=== PATIENT | female | born 1930 | race Caucasian/White ===

== ENCOUNTER 2020-12-05 07:04 | Inpatient (IN) | payer MEDICARE ==
[~2020-12-05] VITALS: Ht 160 cm; Wt 45.4 kg
[2020-12-05 06:59] VITALS: BP 115/42
--- NOTE | 2020-12-05 07:04 | NUR ---
ARRIVAL 'PT ARRIVED TO ED WITH C/O DIFFICULTY BREATHING. PT REPORTS THAT SHE HAS BEEN HAVING INCREASED SOB SINCE COMING HERE FROM [place] 2 WEEKS AGO. BEDSIDE MONITORS APPLIED. VITAL SIGNS STABLE. RT CALLED FOR EKG AND ABG. LUNGS DEMINISHED AND WHEEZING. BED IN LOW LOCKED POSITION. PT HAS 20G IV PLACED TO LEFT FOREARM AND HAS RECEIVED ALBUTEROL AND ATROVENT NEBULIZED TREATMENT, SOLUMEDROL 125MG AND MAGNESIUM 2 GRAMS EN ROUTE TO [facility] VIA EMS. PT DENIES ANY FURTHER SYTMPOMS OR NEEDS AT THIS TIME. CALL LIGHT WITHIN REACH.
[2020-12-05 07:16] LABS: BASOPHIL % 0.7 % (0.0-0.2); EOSINOPHIL # 0.3 10^3/uL (0.0-0.2); EOSINOPHIL % 6.1 % (0.0-5.0); LYMPHOCYTES # 2.43 10^3/uL1 (1.0-4.8); LYMPHOCYTES % 44.7 % (24.0-44.0); MEAN CORP HGB 29.1 pg (26-34); MONOCYTES # 0.4 10^3/uL (0.3-0.8); MONOCYTES % 6.6 % (5.0-12.0); NEUTROPHIL # 2.3 10^3/uL (1.8-7.7); NEUTROPHILS % 41.3 % (41.0-85.0); PLATELET COUNT 275 10^3/uL (150-400); RED CELL DISTRIBUTION WIDTH 17.3 % (11.5-14.5)
[2020-12-05] MEDS ORDERED: FAMO20TA5 PO (07:16)
[2020-12-05] MEDS ORDERED: UMEC1DIS IH (07:16)
[2020-12-05] MEDS ORDERED: ALBU90AE IH (07:16)
[2020-12-05] MEDS ORDERED: SOTA80TA PO ×2 (07:16→11:21)
[2020-12-05] MEDS ORDERED: ASPI-929 PO (07:16)
[2020-12-05] MEDS ORDERED: CHOL20008 PO (07:16)
--- NOTE | 2020-12-05 07:17 | NUR ---
ANDRES MELARA CALLED OUT FOR XRAY.
--- NOTE | 2020-12-05 07:30 | NUR ---
BIPAP PT PLACED ON BIPAP BY RT.
--- NOTE | 2020-12-05 07:36 | ER.PDOC ---
General Chief Complaint: Dyspnea/Respdistress Stated Complaint: DYSPNEA Time seen by MD: 07:33 Source: patient Exam Limitations: no limitations History of Present Illness Initial Comments Patient with COPD brought in by EMS because of difficulty breathing for several weeks and months worse this morning. No fever or chills. She has a cough. No chest pain. Severity: moderate Prior Episodes/Possible Cause: occasional episodes, chronic episodes Modifying Factors: improves with albuterol nebulizer Associated Symptoms: cough, wheezing Allergies: Coded Allergies: Penicillins (Verified Allergy, Unknown, UNKNOWN, 12/05/20) Sulfa (Sulfonamide Antibiotics) (Verified Allergy, Unknown, 12/05/20) codeine (Verified Allergy, Unknown, 12/05/20) Home Meds Reported Medications Albuterol Sulfate (Proair Respiclick) 90 Mcg Aer.pow.ba, 90 MCG IH Q4HR PRN for SHORTNESS OF BREATH, PKG 12/05/20 Aspirin (ASPIRIN EC) 81 Mg Tablet.dr, 81 MG PO DAILY24 12/05/20 Famotidine (FAMOTIDINE) 20 Mg Tablet, 20 MG PO BID, TAB 12/05/20 Cholecalciferol (Vitamin D3) (Vitamin D3) 50 Mcg (2000 Unit) Capsule, 1 CAP PO DAILY24 12/05/20 Sotalol Hcl (SOTALOL) 80 Mg Tablet, 40 MG PO BID, TAB 12/05/20 Umeclidinium Brm/Vilanterol Tr (Anoro Ellipta 62.5-25 Mcg INH) 1 Each Disk.w.dev, 1 EACH IH DAILY24, DISK 12/05/20 Past Medical History Medical History: COPD Surgical History: pacemaker/ICD Family History Significant Family History: no pertinent family hx Social History Smoking: greater than 1 pack/day Alcohol Use: occassionally Drug Use: none Review of Systems Constitutional: no symptoms reported EENTM: no symptoms reported Respiratory: see HPI Cardiovascular: no symptoms reported Gastrointestinal: no symptoms reported All Other Systems: Reviewed and Negative Physical Exam General Appearance: Mild Distress Respiratory: chest non-tender, respiratory distress, decreased breath sounds, prolonged expirations, wheezing Cardiovascular: Normal Peripheral Pulses, Regular Rate, Rhythm, No Edema, No Gallop, No JVD, No Murmur Gastrointestinal: Normal Bowel Sounds, No Organomegaly, No Pulsatile Mass, Non Tender, Soft Extremities: Normal Range of Motion, Non-Tender, Normal Inspection, No Pedal Edema, No Calf Tenderness, Normal Capillary Refill 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 (12/05/20 07:13) Procalcitonin (12/05/20 07:13) Lactic Acid(Ml) (12/05/20 07:13) Cta Chest (12/05/20 08:08) Levofloxacin 500mg/D5w 100ml (Levaquin) (12/05/20 08:16) Levofloxacin 500mg/D5w 100ml (Levaquin) (12/05/20 08:19) 0.9 % Sodium Chloride (Ns 1000ml) (12/05/20 08:21) 0.9 % Sodium Chloride (Ns 1000ml) (12/05/20 08:21) Vital Signs Date Time Temp Pulse Resp B/P (MAP) Pulse Ox O2 Delivery O2 Flow Rate FiO2 12/05/20 06:59 97.6 93 26 115/42 (66) 88 Room Air 12/05/20 06:59 97.6 93 26 88 12/05/20 06:59 97.6 93 26 Administered Medications Medications (Trade) Dose Ordered Sig/Bianca Route PRN Reason Start Time Stop Time Status Last Admin Dose Admin Levofloxacin/ Dextrose 100 ml @ 100 mls/hr STAT STAT IV 12/05/20 08:16 12/05/20 09:15 12/05/20 08:26 100 MLS/HR Sodium Chloride 1,000 ml @ 1,200 mls/hr Q50M STAT IV 12/05/20 08:21 12/05/20 09:10 12/05/20 08:26 1,200 MLS/HR Laboratory Tests Test 12/05/20 07:08 12/05/20 07:10 Blood Gas Sample Site LEFT RADIAL ARTERY Blood pH 7.218 (7.350-7.450) Blood Gas PCO2 48.4 mmHg (35.0-45.0) H Blood Gas PO2 56.0 mmHg (80.0-100.0) L Blood Gas HCO3 19.3 mmol/L (22.0-26.0) L Blood Gas Base Excess -8.4 mmol/L (-2.0-2.0) L Dalton Test POSITIVE Arterial Blood Oxygen Saturation 82.2 % (94.0-97.00) L Deoxyhemoglobin 17.4 % (0.0-5.0) H Carboxyhemoglobin 1.9 % (0.0-3.9) Methemoglobin 0.2 % (0.00-5.0) Total Hemoglobin 12.9 % (12.0-17.8) Total Oxygen Concentration 14.6 % (13.5-17.5) Blood Gas Temperature 37.0 Oxygen Delivery Method ROOM AIR FiO2 21 % (20-101) Total Carbon Dioxide 20.8 mmol/L (23-27) L White Blood Count 5.4 10^3/uL (4.5-11.0) Red Blood Count 4.12 10^6/uL (4.00-5.20) Hemoglobin 12.0 g/dL (12.0-15.0) Hematocrit 40.7 % (36.0-46.0) Mean Corpuscular Volume 98.8 fL (78-100) Mean Corpuscular Hemoglobin 29.1 pg (26-34) Mean Corpuscular Hemoglobin Concent 29.5 g/dL (33-36.5) L Red Cell Distribution Width 17.3 % (11.5-14.5) H Platelet Count 275 10^3/uL (150-400) Mean Platelet Volume 9.8 fL (7.8-11.0) Neutrophils (%) (Auto) 41.3 % (41.0-85.0) Lymphocytes (%) (Auto) 44.7 % (24.0-44.0) H Monocytes (%) (Auto) 6.6 % (5.0-12.0) Neutrophils # (Auto) 2.3 10^3/uL (1.8-7.7) Lymphocytes # (Auto) 2.43 10^3/uL1 (1.0-4.8) Monocytes # (Auto) 0.4 10^3/uL (0.3-0.8) Absolute Immature Granulocyte (auto 0.03 10^3 u/L (0-2) Absolute Eosinophils (auto) 0.3 10^3/uL (0.0-0.2) H Immature Granulocytes % 0.60 % (0.00-0.50) H Eosinophils % 6.1 % (0.0-5.0) H Basophils % 0.7 % (0.0-0.2) H Basophils # 0.0 10^3/uL (0.0-0.1) Prothrombin Time 10.4 SEC (9.6-12.0) Prothrombin Time INR (Non-Therap) 1.0 Activated Partial Thromboplast Time 20.6 SEC (24.67-30.72) D-Dimer 5.07 mg/L (0.19-0.49) *H Sodium Level 144 mmol/L (132-145) Potassium Level 3.7 mmol/L (3.6-5.2) Chloride Level 109.0 mmol/L (96-109) Carbon Dioxide Level 23.2 mmol/L (20.0-32) Anion Gap 15.5 Blood Urea Nitrogen 13 mg/dL (7-18) Creatinine 1.10 mg/dL (0.59-1.40) Estimated GFR () 56.6 (>/=60) Est GFR (CKD-EPI)(Non-Afr South African) 46.8 (>/=60) BUN/Creatinine Ratio 11.0 Glucose Level 233 mg/dL (70-110) H Lactic Acid Level 3.8 mmol/L (0.5-1.9) *H Calcium Level 8.5 mg/dL (8.4-10.5) Total Bilirubin 0.7 mg/dL (0.2-1.0) Aspartate Amino Transferase (AST) 105 U/L (0-35) H Alanine Aminotransferase (ALT) 55 U/L (12-78) Alkaline Phosphatase 94 U/L (50-136) Total Creatine Kinase 35 U/L (26-192) Creatine Kinase MB 1.0 ng/mL (0.5-3.6) Troponin I 0.04 ng/mL (0.00-0.05) Pro-B-Type Natriuretic Peptide 627 pg/mL (0-450) H Total Protein 6.7 g/dL (6.4-8.2) Albumin 3.1 g/dL (3.4-5.0) L Globulin 3.6 Albumin/Globulin Ratio 0.861 Procalcitonin 0.12 ng/mL (0.05-0.5) EKG/XRAY/CT/US EKG: NSR, no ST T wave changes EKG Comments: HR 90, normal P axis XRAY: chest (COPD) ER DEPART Departure Time of Disposition: 08:31 Disposition: 01 HOME / SELF CARE / HOMELESS Impression: Primary Impression: Acute respiratory failure Additional Impression: COPD exacerbation Condition: Stable Referrals: PCP,UNKNOWN (PCP) PRIMARY CARE PROVIDER Comments Admitted to Dr. Alaniz Duration or Time Spent with Pa: 60 min Critical Care Note Total Time (mins): 60 Problem Qualifiers Primary Impression: Acute respiratory failure Respiratory failure complication: hypoxia and hypercapnia Qualified Codes: J96.01 - Acute respiratory failure with hypoxia; J96.02 - Acute respiratory failure with hypercapnia ALEXANDER RUBIO MD Dec 05, 2020 07:36
[2020-12-05 07:41] LABS: CALCIUM 8.5 mg/dL (8.4-10.5); CARBON DIOXIDE 23.2 mmol/L (20.0-32)
--- NOTE | 2020-12-05 07:45 | NUR ---
XRAY SARITHA HERE FOR XRAY
--- NOTE | 2020-12-05 08:07 | NUR ---
CRITICAL LAB D-DIMER 5.07, DOCTOR JOANNE NOTIFIED.
--- NOTE | 2020-12-05 08:11 | PCM.EKG ---
[facility] Test Date: 2020-12-05 Test Time: 06:59:07 Pat Name: MAGDALENO NEAL Department: Room: Gender: F [employer] Vehicle Operator: NURA : 1930 Requested By: VINOD SANTAMARIA Order Number: [id number] Reading MD: Measurements Intervals [facility] Rate: 90 P: 91 MD: 206 QRS: -51 QRSD: 138 T: 109 QT: 414 QTc: 507 Interpretive Statements Sinus rhythm Probable left atrial enlargement RBBB and LAFB Nonspecific T abnormalities, lateral leads No previous ECG available for comparison Please click the below link to view image of tracing.
[2020-12-05] MEDS ORDERED: LEVAQUIN 100 ML IV STA (08:16)
[2020-12-05 08:17] LABS: ABG PCO2 48.4 mmHg (35.0-45.0); ABG PH 7.218 (7.350-7.450); BE(B) -8.4 mmol/L (-2.0-2.0); HCO3act 19.3 mmol/L (22.0-26.0)
[2020-12-05] MEDS ORDERED: LEVAQUIN 100 ML IV ONE (08:19)
[2020-12-05] MEDS ORDERED: NS 1000ML 1,000 ML ONE (08:21)
[2020-12-05] MEDS ORDERED: NS 1000ML 1,000 ML IV STA (08:21)
--- NOTE | 2020-12-05 08:26 | NUR ---
DR STEVENSON FIERRO MBA ON THE PHONE WITH DR DASILVA WHO ACCEPTED PT TO [facility].
--- NOTE | 2020-12-05 08:27 | DIREP ---
PROCEDURE:CHEST 1 VIEW COMPARISON:None. INDICATIONS:SOB FINDINGS: LUNGS/PLEURA:There is pulmonary hyperinflation consistent with underlying COPD. No focal consolidation. No effusions. Calcified granuloma right lung base. VASCULATURE:Normal. Unremarkable pulmonary vasculature. CARDIAC:Normal. No cardiac silhouette abnormality or cardiomegaly. MEDIASTINUM:Calcifications consistent with old granulomatous disease. Dual lead left chest pacemaker. BONES:Normal. No fracture or visible bony lesion. OTHER:Negative. CONCLUSION:Findings suggest COPD. Dictated by: Veto Thomas M.D. on 12/05/2020 at 08:22 AM
--- NOTE | 2020-12-05 09:24 | DIREP ---
PROCEDURE:CT PULMONARY ANGIOGRAM TECHNIQUE:Following the intravenous administration of contrast material, axial cuts were obtained through the chest. Sagittal and coronal MIP post-processing reconstructions are provided. Satisfactory pulmonary arterial contrast opacification was achieved. The images were viewed at lung and soft tissue settings. COMPARISON:None. INDICATIONS:Shortness of breath FINDINGS: PULMONARY ARTERIES:Patent. Mildly prominent central pulmonary arteries raises the concern of pulmonary arterial hypertension in the appropriate clinical setting. There is more contrast in the aorta and pulmonary arteries but no visible pulmonary embolism. LUNGS:Scattered bilateral subpleural scarring. Benign calcified granuloma right middle lobe. PLEURA:Trace posterior right pleural effusion. CARDIAC:Overall heart size within normal limits. Pacemaker leads in the right heart. THORACIC AORTA:Torturous thoracic aorta. Calcified plaque. No visible dissection. No aneurysm. MEDIASTINUM:Normal. BONES:Right-sided curvature of the thoracic/lumbar spine junction. THYROID:Normal. OTHER:No additional findings. CONCLUSION: 1. Negative for pulmonary embolism. No visible air dissection or aneurysm. 2. Mild subpleural scarring in both lungs. 3. Mildly enlarged central pulmonary arteries raise the concern of pulmonary arterial hypertension. Dictated by: Veto Thomas M.D. on 12/05/2020 at 09:14 AM
[2020-12-05 10:57] VITALS: BP 113/60
[2020-12-05] MEDS ORDERED: BETAPACE ONE (11:24)
--- NOTE | 2020-12-05 13:45 | PCM.HP ---
HISTORY & PHYSICAL HISTORY & PHYSICAL DATE OF ADMISSION: December 05, 2020 CHIEF COMPLAINT: Unable to breathe HISTORY OF PRESENT ILLNESS: 89-year-old female with previous history of atrial fibrillation with possible sick sinus syndrome status post pacemaker placement and GI bleed s/p discontinuation of Coumadin and COPD was apparently came from a concert was assessed in [place] and for last few days breathing progressively getting worse and this morning she was not able to catch her breath therefore ambulance was called and the patient was brought to the ER in the ER patient was found to have hypoxemic started on BiPAP and was admitted to medical floor for further management patient denies any fever chills rigors no change in sputum production or color no hemoptysis only she was feeling short of breath progressively getting worse denies any chest pain had dizziness lightheadedness no nausea vomiting no diarrhea no abdominal symptoms no urinary symptoms ALLERGIES: Allergic to sulfa medicine CURRENT MEDICATIONS: Albuterol as needed, aspirin 81 mg daily, famotidine 20 mg twice daily vitamin D sotalol 40 mg twice daily and Anoro Ellipta 1 inhalation daily PAST MEDICAL HISTORY: COPD, atrial fibrillation, sick sinus syndrome, SOCIAL HISTORY: Still smoke about 1 pack/day for more than 50 years, no alcohol intake, lives alone FAMILY HISTORY: Sister has COPD and family history of cystic fibrosis trait REVIEW OF SYSTEMS: Breathing has slightly improved after oxygen was started and no chest pain no headache nausea vomiting no abdominal pain no dysuria hematuria and no calf tenderness or cramping But has pain during walking for several years VITAL SIGNS: Vital Signs Date Time Temp Pulse Resp B/P (MAP) Pulse Ox O2 Delivery O2 Flow Rate FiO2 12/05/20 13:27 S/T 12/05/20 11:10 S/T 12/05/20 10:57 97.6 73 22 113/60 (77) Bi Pap 12/05/20 10:41 Bi-pap 12/05/20 10:04 Bi-pap 12/05/20 09:28 20 96 12/05/20 09:26 64 20 96 12/05/20 09:23 63 22 96 S/T 25 12/05/20 08:45 74 22 94 S/T 25 12/05/20 06:59 97.6 93 26 115/42 (66) 88 Room Air 12/05/20 06:59 97.6 93 26 88 12/05/20 06:59 97.6 93 26 PHYSICAL EXAMINATION: General: Patient is awake alert oriented no acute distress with oxygen via nasal cannula, Patient is severely underweight and malnourished look cachectic HEENT anicteric sclera pupil react light mucous membrane is slightly dry neck supple no JVD no carotid bruit noted Lungs air entry diminished bilaterally no wheezes or rales heard but have prolonged expiration Heart distant heart sounds S1-S2 heard no murmur no gallop appreciated Abdomen not distended no guarding no rigidity bowel sounds present no organomegaly or masses felt Extremities no edema no calf tenderness elicited ,Fever pulse noted on the right dorsalis Artery NURSING EDUCATOR: Awake alert oriented cranial nerves grossly intact muscle power 5-/5 in all 4 limbs symmetrical LABORATORY DATA: Laboratory Tests Test 12/05/20 07:08 12/05/20 07:10 12/05/20 08:35 12/05/20 10:00 Blood Gas Sample Site LEFT RADIAL ARTERY Blood Gas pH 7.218 (7.350-7.450) Blood Gas PCO2 48.4 mmHg (35.0-45.0) Blood Gas PO2 56.0 mmHg (80.0-100.0) Blood Gas HCO3 19.3 mmol/L (22.0-26.0) Blood Gas Base Excess -8.4 mmol/L (-2.0-2.0) Dalton Test POSITIVE Arterial Blood Oxygen Saturation 82.2 % (94.0-97.00) Deoxyhemoglobin 17.4 % (0.0-5.0) Carboxyhemoglobin 1.9 % (0.0-3.9) Methemoglobin 0.2 % (0.00-5.0) Total Hemoglobin 12.9 % (12.0-17.8) Total Oxygen Concentration 14.6 % (13.5-17.5) Blood Gas Temperature 37.0 Oxygen Delivery Method (LAB) ROOM AIR FiO2 21 % (20-101) Total Carbon Dioxide 20.8 mmol/L (23-27) White Blood Count 5.4 10^3/uL (4.5-11.0) Red Blood Count 4.12 10^6/uL (4.00-5.20) Hemoglobin 12.0 g/dL (12.0-15.0) Hematocrit 40.7 % (36.0-46.0) Mean Corpuscular Volume 98.8 fL (78-100) Mean Corpuscular Hemoglobin 29.1 pg (26-34) Mean Corpuscular Hemoglobin Concent 29.5 g/dL (33-36.5) Red Cell Distribution Width 17.3 % (11.5-14.5) Platelet Count 275 10^3/uL (150-400) Mean Platelet Volume 9.8 fL (7.8-11.0) Neutrophils (%) (Auto) 41.3 % (41.0-85.0) Lymphocytes (%) (Auto) 44.7 % (24.0-44.0) Monocytes (%) (Auto) 6.6 % (5.0-12.0) Neutrophils # (Auto) 2.3 10^3/uL (1.8-7.7) Lymphocytes # (Auto) 2.43 10^3/uL1 (1.0-4.8) Monocytes # (Auto) 0.4 10^3/uL (0.3-0.8) Absolute Immature Granulocyte (auto 0.03 10^3 u/L (0-2) Absolute Eosinophils (auto) 0.3 10^3/uL (0.0-0.2) Immature Granulocytes % 0.60 % (0.00-0.50) Eosinophils % 6.1 % (0.0-5.0) Basophils % 0.7 % (0.0-0.2) Basophils # 0.0 10^3/uL (0.0-0.1) Prothrombin Time 10.4 SEC (9.6-12.0) Prothrombin Time INR (Non-Therap) 1.0 Activated Partial Thromboplast Time 20.6 SEC (24.67-30.72) D-Dimer 5.07 mg/L (0.19-0.49) Sodium Level 144 mmol/L (132-145) Potassium Level 3.7 mmol/L (3.6-5.2) Chloride Level 109.0 mmol/L (96-109) Carbon Dioxide Level 23.2 mmol/L (20.0-32) Anion Gap 15.5 Blood Urea Nitrogen 13 mg/dL (7-18) Creatinine 1.10 mg/dL (0.59-1.40) Estimated GFR () 56.6 (>/=60) Est GFR (CKD-EPI)(Non-Afr Estonian) 46.8 (>/=60) BUN/Creatinine Ratio 11.0 Glucose Level 233 mg/dL (70-110) Lactic Acid Level 3.8 mmol/L (0.5-1.9) Calcium Level 8.5 mg/dL (8.4-10.5) Total Bilirubin 0.7 mg/dL (0.2-1.0) Aspartate Amino Transf (AST/SGOT) 105 U/L (0-35) Alanine Aminotransferase (ALT/SGPT) 55 U/L (12-78) Alkaline Phosphatase 94 U/L (50-136) Total Creatine Kinase 35 U/L (26-192) Creatine Kinase MB 1.0 ng/mL (0.5-3.6) Troponin I 0.04 ng/mL (0.00-0.05) Pro-B-Type Natriuretic Peptide 627 pg/mL (0-450) Total Protein 6.7 g/dL (6.4-8.2) Albumin 3.1 g/dL (3.4-5.0) Globulin 3.6 Albumin/Globulin Ratio 0.861 Procalcitonin 0.12 ng/mL (0.05-0.5) SARS-CoV-2 Antigen (Rapid) NEGATIVE (NEGATIVE) Lactic Acid Followup at 2 Hours 2.3 mmol/L (0.5-1.9) IMAGING: PROCEDURE:CT PULMONARY ANGIOGRAM TECHNIQUE:Following the intravenous administration of contrast material, axial cuts were obtained through the chest. Sagittal and coronal MIP post-processing reconstructions are provided. Satisfactory pulmonary arterial contrast opacification was achieved. The images were viewed at lung and soft tissue settings. COMPARISON:None. INDICATIONS:Shortness of breath FINDINGS: PULMONARY ARTERIES:Patent. Mildly prominent central pulmonary arteries raises the concern of pulmonary arterial hypertension in the appropriate clinical setting. There is more contrast in the aorta and pulmonary arteries but no visible pulmonary embolism. LUNGS:Scattered bilateral subpleural scarring. Benign calcified granuloma right middle lobe. PLEURA:Trace posterior right pleural effusion. CARDIAC:Overall heart size within normal limits. Pacemaker leads in the right heart. THORACIC AORTA:Torturous thoracic aorta. Calcified plaque. No visible dissection. No aneurysm. MEDIASTINUM:Normal. BONES:Right-sided curvature of the thoracic/lumbar spine junction. THYROID:Normal. OTHER:No additional findings. CONCLUSION: 1. Negative for pulmonary embolism. No visible air dissection or aneurysm. 2. Mild subpleural scarring in both lungs. 3. Mildly enlarged central pulmonary arteries raise the concern of pulmonary arterial hypertension. Dictated by: Veto Thomas M.D. on 12/05/2020 at 09:14 AM SUMMARY: 89-year-old female with previous history of COPD atrial fibrillation sick sinus syndrome came to the ER with shortness of breath found to have hypoxemic started on BiPAP and her symptom improved and will observe overnight and discharge planning in a.m. ASSESSMENT/PLAN: COPD with hypoxemia Atrial fibrillation rate controlled Possible sick sinus syndrome s/p pacemaker placement History of GI bleed Coumadin discontinued MILTON CASTILLO MD Dec 05, 2020 13:44
[2020-12-05] MEDS ORDERED: PULMICORT IH SCH (14:00)
[2020-12-05] MEDS: LOVENOX SQ SCH (14:34)
[2020-12-05] MEDS: SOLU-MEDROL IV SCH ×2 (14:34→22:05)
[2020-12-05] MEDS: DUO 0.5-3(2.5) MG/3 ML IH SCH ×2 (15:41→21:00)
[2020-12-05 16:04] VITALS: BP 104/63
--- NOTE | 2020-12-05 17:15 | NUR ---
DIET PATIENT STATES SHE DOES NOT EAT RED MEAT. PATIENT STATES SHE HAD A MALIGNANT COLONOSCOPY IN THE PAST. PATIENT STATES THE DR THAT PERFORMED THE COLONOSCOPY TOLD HER NOT TO EAT RED MEAT. PATIENT STATES SHE ONLY EATS CHICKEN, FISH, OR TURKEY. PATIENT STATES SHE WOULD LIKE TO BE ON THE LIQUID DIET. DIETARY CALLED TO ACCOMMODATE THESE NEEDS. CHARGE NURSE NOTIFIED. THIS NURSE TO CONTINUE PLAN OF CARE.
[2020-12-05] MEDS: MUCOMYST PO SCH (21:00)
[2020-12-05] MEDS: PULMICORT IH SCH (21:00)
[2020-12-05] MEDS: VIBRAMYCIN 100 MG in NS 100ML 100 ML IV SCH (22:05)
[2020-12-05 23:04] VITALS: BP 103/51
--- NOTE | 2020-12-06 03:00 | NUR ---
@0300, due to pt being noncompliant and refusing to stay on her bipap, RN turned off bipap and put her on 2L of O2 via NC that she had been wearing prior to bipap.Pt stated she would only wear her nasal cannula and repeatedly said she did not want to have her bipap mask on anymore. Addendum: 12/06/20 at 0529 by RICKEY Elkins RT Amended: Links added.
[2020-12-06 03:56] VITALS: BP 101/48
[2020-12-06] MEDS: SOLU-MEDROL IV SCH (05:17)
[2020-12-06] MEDS: PULMICORT IH SCH ×2 (08:25→20:56)
[2020-12-06] MEDS: DUO 0.5-3(2.5) MG/3 ML IH SCH ×3 (08:25→20:56)
[2020-12-06 08:30] VITALS: BP 107/56
[2020-12-06] MEDS ORDERED: NS 100ML 100 ML IV ONE (09:17)
[2020-12-06] MEDS: VIBRAMYCIN 100 MG in NS 100ML 100 ML IV SCH ×2 (09:43→20:30)
[2020-12-06] MEDS: MUCOMYST PO SCH ×2 (10:20→20:28)
--- NOTE | 2020-12-06 10:29 | NUR ---
MUCOMYST WAS NOT AVAILABLE TILL PHARMACY WAS ABLE TO BRING IT UP SO IT WAS GIVEN AT 1020 INSTEAD OF 0900
--- NOTE | 2020-12-06 11:36 | PRM.PN ---
PROGRESS NOTE S/O/A/P DATE: 12/06/20 TIME: 10:45am SUBJECTIVE: Patient seen and examined at bedside. Chart was reviewed. Says she's feeling better today with less SOB, cough, and wheezing. Hoping to be DC'd soon so she can return home to [place] on . OBJECTIVE: PHYSICAL EXAMINATION: VITAL SIGNS: T 98.2, HR 63, RR 16, BP 107/56, O2 sat 93% 2L NC GENERAL: Resting comfortably in NAD. Pt's Brother and Niece are both currently present at bedside. HEENT: NC/AT. PERRLA. EOMI. MMM. Neck is supple. LUNGS: Faint BL expiratory wheezing. No respiratory distress or cyanosis. Coughing loudly. HEART: Normal S1S2. RRR. No murmurs, rubs, gallops, or thrills. Left PPM in place. ABDOMEN: Soft. ND. NTTP. No rebound or guarding. Normal BS throughout. EXTREMITIES: Trace pedal edema. Weak, but moving all 4 extremities equally and completely off the bed. NEUROLOGIC: AAOx3. No motor or sensory deficits noted. Gait was not assessed at this time. LABORATORY DATA: No new labs today. Bld Cx: Neg x1 day IMAGING STUDIES: No new studies today. ASSESSMENT / PLAN: 1) Acute Hypoxemic and Hypercapneic Respiratory Failure: Will continue to wean off O2 as tolerated. Pt may require Home O2 on DC if she remains Hypoxic. Per RT, Pt refused to wear her BIPAP mask last night. Pt has received the COVID vaccine x2, and tested negative for SARS-COV-2. 2) Acute COPD Exacerbation with Active Tobacco Abuse: Pt has been counseled and encouraged to quit smoking. Will continue Br Tx's, O2 PRN, Steroids, and Doxycycline. 3) Elevated D-dimer: CTA chest was negative for PE. 4) Elevated proBNP: Will check an Echocardiogram to further evaluate. 5) Paroxysmal Atrial Fibrillation: Currently rated controlled and in NSR. Will continue home Sotalol and ASA. Pt was taken off Coumadin previously due to a GIB. 6) ? SSS s/p PPM/AICD placement: Monitor for now. 7) Hyperglycemia: Will check a HgbA1c. 8) Generalized Weakness: Will request a PT evaluation in the morning. Pt declines SNF or Rehab on DC. 9) GI and DVT prophylaxis: Will continue Pepcid and Lovenox. 10) CODE STATUS: Discussed with Pt and her Niece at length. Pt wishes to remain a FULL CODE for now. LOS JEFFRESON MD Dec 06, 2020 11:35
[2020-12-06] MEDS ORDERED: DUO 0.5-3(2.5) MG/3 ML IH PRN (12:00)
[2020-12-06 12:07] VITALS: BP 109/57
[2020-12-06] MEDS: VITAMIN D PO SCH (13:31)
[2020-12-06] MEDS: ASPIRIN EC PO SCH (13:31)
[2020-12-06] MEDS: LOVENOX SQ SCH ×2 (13:32→13:46)
--- NOTE | 2020-12-06 13:46 | NUR ---
PATIENT REFUSED LOVENOX INJECTION. WHEN EDUCATED ON THE PURPOSE OF THE MED PATIENT STATED THEY DO NOT TAKE ANY TYPE OF MEDICINE BY THIS NAME OR FOR THIS PURPOSE. PATIENT STATES SHE TAKES VIT D AND ASPIRIN 81 MG, HER WARFARIN WAS DC'D DUE TO LOW PLATELET COUNT.
[2020-12-06 16:50] VITALS: BP 131/62
--- NOTE | 2020-12-06 17:43 | NUR ---
Pt ambulating in hallway accompanied by CHRISTIN Correa for O2 challenge without O2, pt's O2 dropped to 83% RA
[2020-12-06 19:56] VITALS: BP 109/59
[2020-12-06] MEDS: BETAPACE PO SCH (20:30)
[2020-12-06] MEDS: PEPCID PO SCH (20:30)
[2020-12-07 00:15] VITALS: BP 103/51
[2020-12-07 04:52] VITALS: BP 110/61
[2020-12-07 04:57] LABS: BASOPHIL % 0.1 % (0.0-0.2); EOSINOPHIL % 0.1 % (0.0-5.0); LYMPHOCYTES # 1.82 10^3/uL1 (1.0-4.8); LYMPHOCYTES % 18.6 % (24.0-44.0); MEAN CORP HGB 29.7 pg (26-34); MONOCYTES # 0.6 10^3/uL (0.3-0.8); MONOCYTES % 5.7 % (5.0-12.0); NEUTROPHIL # 7.4 10^3/uL (1.8-7.7); NEUTROPHILS % 75.5 % (41.0-85.0); PLATELET COUNT 219 10^3/uL (150-400); RED CELL DISTRIBUTION WIDTH 17.3 % (11.5-14.5)
[2020-12-07 05:21] LABS: CALCIUM 8.4 mg/dL (8.4-10.5)
[2020-12-07 07:53] VITALS: BP 122/70
[2020-12-07] MEDS: DUO 0.5-3(2.5) MG/3 ML IH SCH ×2 (09:00→15:00)
[2020-12-07] MEDS: MUCOMYST PO SCH (09:00)
[2020-12-07] MEDS: PULMICORT IH SCH (09:00)
[2020-12-07] MEDS ORDERED: PREDNISONE PO SCH (09:00)
[2020-12-07] MEDS: VIBRAMYCIN 100 MG in NS 100ML 100 ML IV SCH (10:10)
[2020-12-07] MEDS: BETAPACE PO SCH (10:10)
[2020-12-07] MEDS: PEPCID PO SCH (10:11)
[2020-12-07] MEDS ORDERED: NS 250ML 250 ML IV ONE (10:24)
[2020-12-07 11:24] VITALS: BP 103/61
[2020-12-07] MEDS ORDERED: DOXY100T PO (11:39)
[2020-12-07] MEDS ORDERED: PRED20TA PO (11:39)
[2020-12-07] MEDS ORDERED: GUAI600T31 PO (11:45)
--- NOTE | 2020-12-07 11:53 | NUR ---
DISCHARGE PLANNING CM VISITED WITH PATIENT AND NIECE ABOUT DISCHARGE PLANS AND NEEDS. EDUCATED ON RESOURCES AVAILABLE. PATIENT CURRENTLY LIVES IN [place] AT HOME ALONE AND DOES SELF CARE. PATIENT SEES A SUNIL SESAY IN [place]. REPORTS WHEN BACK HOME SHE WILL DISCUSS ANY RESOURCES NEEDED AT HOME, OTHER THAN OXYGEN. PATIENT HAS BROTHER THAT LIVES NEARBY. PLANS TO DISCHARGE HOME TO SISTER'S HOUSE IN [place] AND RETURN TO [place] WHEN TRAVELING ARRANGEMENTS MADE. PATIENT REQUIRES OXYGEN@ DISCHARGE. AGREEABLE TO [facility] FOR DME. PATIENT RICARDO HAVING ANY MEDICAL EQUIPMENT AT HOME AND DENIES NEED FOR ANY ASSISTANCE WITH ANY OTHER DME. PATIENT'S NIECE REPORTS THAT SHE IS MEETING PATIENT'S FAMILY IN [facility] LATER THIS WEEK OR NEXT. [facility] INFORMATION AND CHOICE LETTER SIGNED AND [facility] CHOICE LETTER SIGNED AND PLACED IN CHART. REFERRAL TO [facility] FOR [phone]. CM SPOKE TO [email or web address] AND INFORMED OF REFERRAL AND THAT PATIENT WOULD BE GOING HOME WITH SISTER IN [place] AND ADDRESS OF [address] [place] [address]. O2 WOULD BE TRANSFERRED TO ONE OF THEIR [employer] COMPANIES IN [place] WHEN PATIENT RETURNS HOME. CM NOTIFIED PATIENT AND NIECE AND INFORMED OF THE PLAN. DENIES ANY FURTHER CM NEEDS. FAX CONFIRMATION RETURNED COMPLETE. Addendum: 12/07/20 at 1257 by Renea Presley RN,Case Managemen RN BP [facility] NOTIFICATION LETTER GIVEN TO PATIENT AND PATIENT VOICES UNDERSTANDING OF ALL.
[2020-12-07] MEDS: ASPIRIN EC PO SCH (12:00)
[2020-12-07] MEDS: VITAMIN D PO SCH (12:36)
--- NOTE | 2020-12-07 12:55 | PCM.ECHO ---
APPROVED REPORT EXAM: Comprehensive 2D, Doppler, and color-flow Echocardiogram. Patient Location: IN-PATIENT Indications elevated BNP 2D Dimensions LVOT Diameter 2.02 (1.8-2.4cm) LVEF(%) 29.70 (>50%) M-Mode Dimensions RVDd 1.60 (2.1-3.2cm) Left Atrium(MM) 3.35 (2.5-4.0cm) IVSd 1.45 (0.7-1.1cm) Aortic Root 2.40 (2.2-3.7cm) LVDd 4.05 (4.0-5.6cm) Aortic Cusp Exc 1.25 (1.5-2.0cm) PWd 0.85 (0.7-1.1cm) MV EPSS 1.26 (<0.5cm) IVSs 1.25 cm FS (%) 28.15 % LVDs 2.90 (2.0-3.8cm) ESV(Teich) 33.26 ml PWs 1.15 cm LVEF(%) 54.97 (>50%) Volumes Biplane 2D LV Volumes Biplane 2D LA Volumes LVEDv A4C 56.93 mL LA ESV Index LVESv A4C 40.07 mL Aortic Valve AoV Peak Karl. 0.95 m/s AoV VTI 23.05 cm AO Peak GR. 3.75 mmHg AO Mean GR. 2.15 mmHg LVOT VTI 15.59 cm LVOT Peak Karl. 0.58 m/s MARY(VTI)/BSA 2.15 cm2/m2 MARY (VTI) 2.15 cm2 Mitral Valve MV E Velocity 0.80m/s MR Peak Gr. 10.25mmHg MV A Velocity 0.65m/s TDI Lateral E' P. V 0.08m/s Medial E' P. V 0.12m/s Pulmonary Valve PV Peak Velocity 0.75m/s PV Peak Grad. 2.40mmHg RVOT VTI 17.84cm Tricuspid Valve TR P. Velocity 1.90m/s RAP ESTIMATE 10.00mmHg TR Peak Gr. 14.84mmHg RVSP 24.84mmHg LEFT VENTRICLE The left ventricle is normal size. The left ventricular systolic function is normal. The left ventricular ejection fraction is within the normal range. There is normal left ventricular wall thickness. There is normal LV segmental wall motion. There is no ventricular septal defect visualized. No left ventricle thrombus noted on this study. LVEF is 55%. RIGHT VENTRICLE The right ventricle is normal size. The right ventricular systolic function is normal. There is normal right ventricular wall thickness. ATRIA The left atrium size is normal. The right atrium size is normal. The interatrial septum is intact with no evidence for an atrial septal defect. AORTIC VALVE The aortic valve is normal in structure. There is no aortic valvular stenosis. No aortic regurgitation is present. There is no aortic valvular vegetation. MITRAL VALVE The mitral valve is normal in structure. There is no mitral valve stenosis. Moderate mitral regurgitation. There is no evidence of mitral valve vegetations. TRICUSPID VALVE The tricuspid valve is normal in structure. There is no tricuspid valve stenosis. Moderate tricuspid regurgitation. There is no tricuspid valve vegetations. PULMONIC VALVE Pulmonic valve is not well visualized. There is no pulmonic valvular stenosis. Moderate pulmonic regurgitation. GREAT VESSELS The aortic root is normal in size. Pulmonary artery is not well visualized. Aortic arch is not well visualized. The IVC is normal in size and collapses >50% with inspiration. PERICARDIUM There is no pericardial effusion. There is no pleural effusion. Other Information Study Quality: Fair <Conclusion> The left ventricular systolic function is normal. LVEF is 55%. Moderate mitral regurgitation. Moderate tricuspid regurgitation. Moderate pulmonic regurgitation. Electronically signed by : FELISA SERRANO. 12/07/2020 12:55:03
[2020-12-07 13:17] VITALS: BP 103/61
[2020-12-07] MEDS: LOVENOX SQ SCH (14:00)
--- NOTE | 2020-12-07 14:58 | NUR ---
DISCHARGE PATIENT BEING DISCHARGED HOME AT THIS TIME IN STABLE CONDITION. PATIENT DENIES ANY ADDITIONAL NEEDS AT THIS TIME. PATIENT WAS ASSISTED DOWNSTAIRS TO PRIVATE VEHICLE VIA WHEELCHAIR BY HOSPITAL PERSONNEL. RELINQUISHED CARE FOR PATIENT AT THIS TIME.
--- NOTE | 2020-12-07 15:33 | NUR ---
PT BEING DISCHARGED
--- NOTE | 2020-12-08 23:37 | PRM.DC ---
DISCHARGE SUMMARY Y DATE OF ADMISSION: 12/05/20 DATE OF DISCHARGE: 12/07/20 FINAL DISCHARGE DIAGNOSES: 1) Acute Hypoxemic and Hypercapneic Respiratory Failure: Improved. However, Pt is still requiring O2 via NC. CM is currently finalizing the arrangements for Pt to be DC'd home with O2. 2) Acute COPD Exacerbation with Active Tobacco Abuse: Pt has been counseled and encouraged to quit smoking. Will continue Br Tx's, O2 PRN, Steroids, and Doxycycline. 3) Elevated D-dimer: CTA chest was negative for PE. 4) Elevated proBNP: An Echocardiogram was ordered, but is still pending at the time of DC. Discussed with Pt, and she does not wish to remain in hospital any longer. Pt does agree to follow up with her PCP in clinic for these Echocardiogram results. 5) Paroxysmal Atrial Fibrillation: Currently rated controlled and in NSR. Will continue home Sotalol and ASA. Pt was taken off Coumadin previously due to a GIB. 6) ? SSS s/p PPM/AICD placement: Stable. Monitor for now. 7) Hyperglycemia: Likely due to steroids. HgbA1c 5.6. Pt is not diabetic. 8) Generalized Weakness: Improving. Pt did work with PT during this hospital stay. She declined SNF and wishes to return home with her family. CONSULTS: None HISTORY & BRIEF HOSPITAL COURSE: Ms Hoffman is an 89yo WF who presented to [facility] with worsening SOB, cough, and wheezing for the past several weeks. She was found to be in Respiratory Failure with Hypoxemia and Hypercapnea due to an Acute COPD exacerbation. Patient was started on Br Tx's, O2 PRN, steroids, and Doxycycline. She made a slow and steady recovery, but still required supplemental O2 via NC at the time of DC to maintain her oxygenation levels above 88%. FERDINAND was consulted and made arrangements for Pt to have home O2. Patient overall was feeling much improved and requested to be DC'd home with her family. PHYSICAL EXAMINATION: VITAL SIGNS: T 98, HR 84, RR 18, BP 103/61, O2 sat 98% 1L NC GENERAL: Resting comfortably in NAD. Pt's Niece is currently present at bedside. HEENT: NC/AT. PERRLA. EOMI. MMM. Neck is supple. LUNGS: Faint BL expiratory wheezing. No respiratory distress or cyanosis. HEART: Normal S1S2. RRR. +1/6 systolic murmur LSB. Left PPM in place. ABDOMEN: Soft. ND. NTTP. No rebound or guarding. Normal BS throughout. EXTREMITIES: Trace pedal edema. Weak, but moving all 4 extremities equally and completely off the bed. NEUROLOGIC: AAOx3. No motor or sensory deficits noted. Gait was not assessed at this time. DISCHARGE CONDITION: Stable DISPOSITION: DC'd Home with Family MEDICATIONS: See Med Rec INSTRUCTIONS TO PT: 1) DIET: Cardiac Healthy as tolerated 2) ACTIVITY: As tolerated 3) OTHER: Stop smoking FOLLOW UP: 1) PCP in [place] in 1 week, or sooner as needed Discussed the POC with Pt and her Niece at great length. All questions/concerns sought and addressed. >35min was spent with patient at bedside today as well as in preparation of the DC paperwork. LOS JEFFERSON MD Dec 08, 2020 23:37
== END 2020-12-07 16:31 | disposition home or self-care (01) | DRG 189 ==
LOC: EDBD 07:04 → ER 07:04 → MS 08:37
PROVIDERS: ADMIT Internal Medicine; ATTEND Internal Medicine
PROC: 5A09357 Assistance with Respiratory Ventilation, Less than 24 Consecutive Hours, Continuous Positive Airway Pressure (ICD-10-PCS; principal; 2020-12-05)
PROC: 5A09357 Assistance with Respiratory Ventilation, Less than 24 Consecutive Hours, Continuous Positive Airway Pressure (ICD-10-PCS; 2020-12-06)
PROC: 5A09357 Assistance with Respiratory Ventilation, Less than 24 Consecutive Hours, Continuous Positive Airway Pressure (ICD-10-PCS; 2020-12-07)
DX: J96.01 Acute respiratory failure with hypoxia (principal); J44.1 Chronic obstructive pulmonary disease with (acute) exacerbation; J96.02 Acute respiratory failure with hypercapnia; Z20.822 Contact with and (suspected) exposure to COVID-19; R73.9 Hyperglycemia, unspecified; F17.210 Nicotine dependence, cigarettes, uncomplicated; I48.0 Paroxysmal atrial fibrillation; I49.5 Sick sinus syndrome; Z82.5 Family history of asthma and other chronic lower respiratory diseases; Z79.51 Long term (current) use of inhaled steroids; Z83.49 Family history of other endocrine, nutritional and metabolic diseases; Z79.899 Other long term (current) drug therapy; Z88.2 Allergy status to sulfonamides; Z95.810 Presence of automatic (implantable) cardiac defibrillator; Z79.01 Long term (current) use of anticoagulants; Z88.0 Allergy status to penicillin; Z88.5 Allergy status to narcotic agent
CPT/HCPCS: 36415; 36600; 71045; 71275; 80053; 82550; 82553; 82803; 83036; 83605; 83735; 83880; 84100; 84145; 84484; 85025; 85379; 85610; 85730; 87040; 87426; 93005; 93306; 94640; 94660; 99291; G0378; J0132; J1650; J1956; J2920; J7030; J7050; J7512; J7627; Q9965; J3490